=== PATIENT | male | born 1975 | race Caucasian/White ===

== ENCOUNTER 2023-10-25 20:40 | Emergency (ER) | payer OTHER, SELFPAY ==
[2023-10-25 20:41] VITALS: BP 192/108
[2023-10-25 21:00] VITALS: BP 154/91
--- NOTE | 2023-10-25 21:29 | ED.GENMED ---
History of Present Illness
General
Chief Complaint: Chest Pain
Source: patient
Time Seen by Provider: 10/25/23 21:21
Travel History
Have you had any contact with someone who has COVID-19?: No
Do you have any symptoms of coronavirus? Fever > 100 degrees, chills, cough, shortness of breath, sore throat, loss of taste or smell, muscle aches, or headache?: No
History of Present Illness
History of Present Illness:
This patient is a 48-year-old male with complaints of left anterior chest wall pain that started earlier tonight and is now fully resolved. He states that he has been getting the same pain for the last few nights, lasting about a minute or so at a
time and then going away completely before recurring. He describes it as a 'tight' without associated radiation, diaphoresis, nausea, vomiting, dyspnea. It is not pleuritic in nature. He denies associated new leg edema, back pain, jaw pain,
headache, dizziness, fever, chills, sore throat, cough, or other complaints.
Past History
Past History
ED Past Medical History: None
ED Past Surgical History: Other (Oral)
Social History
Tobacco: Former smoker
Alcohol: None
Drug: None
Personal:
Living: with family
Employment: Employed
Phy Exam
Physical Exam
Physical Exam:
GENERAL: Alert , in no apparent distress
EYE: pupils equal and reactive
NECK: Supple, no significant adenopathy.
ENT: o/p clr, mmm.
CARDIAC: Regular rate and rhythm .
LUNGS: Clear breath sounds bilaterally, no acute respiratory distress, no wheezes/rales/rhonchi
ABDOMEN: Soft, without focal tenderness, no r/g, no cvat
NEUROLOGICAL: Alert and oriented, no focal neuro deficits
SKIN: Warm and dry, skin intact.
MUSCULOSKELETAL: No edema, well perfused.
PSYCH: Normal and appropriate interaction.
Scores
Heart Score for Chest Pain Patients
STEMI patient?: Not applicable
Course
Orders/Labs/Results
Orders:
Orders
10/25/23 20:42
Electrocardiogram (*1) Urgent
Reason for Study: Chest Pain
EKG- Treatment ONCE
10/25/23 20:51
Cardiac Monitoring- Treatment ONCE
IV Insert/Care/Rem.- Treatment PRN
O2 Therapy [RESP] Urgent
Titrate/Wean O2 to maintain O2 sat greater than (%): 90
Special Instructions: Maintain sats >/=90%
Pulse Ox/spot Check [RESP] Urgent
Quantity: 1
Special Instructions: ON ROOM AIR
10/25/23 21:29
Complete Blood Count/With Diff Urgent
Comprehensive Metabolic Panel Urgent
Troponin I Urgent
10/25/23 22:33
CR Chest - 2 Views Urgent
Comment:
Reason For Exam: CP
10/26/23 00:37
Troponin I Urgent
Abnormal Lab Results
10/25/23
21:29
Absolute Monos (auto) 0.8 H 10^3/uL
(0.1-0.6)
Glucose 132 H mg/dl
(70-99)
10/25/23 21:29
10/25/23 21:29
Vital Signs
Initial and Last Documented VS:
Initial Vital Signs
Temp Pulse Resp BP Pulse Ox
97.8 F 70 18 192/108 98
10/25/23 20:41 10/25/23 20:41 10/25/23 20:41 10/25/23 20:41 10/25/23 20:41
Last Documented Vital Signs
Temp Pulse Resp BP Pulse Ox
97.8 F 65 24 150/84 96
10/25/23 20:41 10/26/23 00:36 10/26/23 00:36 10/25/23 22:38 10/26/23 00:36
*Critical Care Note
Total Time (30-74mins, 75-104mins- exclusive of procedures): Not Applicable
Update Note
Update Note:
Patient presents to the Emergency Department with
Number and Complexity of Problems Addressed at the Encounter
� Chronic conditions affecting care:
� Acute Exacerbation and/or Progression of Chronic Illness:
� Differential Diagnosis includes:
Amount and/or Complexity of Data to be Reviewed and Analyzed
� I performed an independent evaluation of and my interpretation is:
EKG:read by me, nsr, no acute ischemia, nl rate
CT:
Xrays:cxr read by me, mediastinum nl, no cm, no infiltrate
Laboratory Studies:UNREMARKABLE
Other:
� Review of other/old records reveals:
� Clinical information was obtained by an independent historian:
� Prescriptions/Medications Considered but not given:
� Further testing considered but not performed:
Risk of Complications and/or Morbidity or Mortality of Patient Management
� Social determinants of health affecting care:
� Discussion with other providers (PCP, Hospitalists, Consultants, etc):
� Escalation of care including admission/observation vs risk of discharge considered:1033 PM, pt remains asx, second trop pending. No 'red flag' findings to suggest pe, dissection, evolving acs, etc. Will jasmyneley be candidate
for d/c with close f/u.
ED Attending Note
-
Portions of this chart may have been created with voice recognition software.� Occasional wrong word or��sound alike� substitutions may have occurred due to the inherent limitations of voice recognition software.
Discharge Plan
Departure
Patient Disposition: Home (Routine Discharge)
Patient with high blood pressure during this ER visit?: Yes
Condition: Good
Discharge Problem:
Chest pain
Instructions: Chest Pain PCP Follow Up, BLOOD PRESSURE
Referrals:
Kitty Baumann MD [Active] - Next open appointment
NONE,* [Family Provider] -
Activity Restrictions/Additional Instructions:
IF YOU DEVELOP RECURRENT/PERSISTENT, OR NEW PAIN, FEVER, TROUBLE BREATHING, DIZZINESS, ABDOMINAL PAIN, OR OTHER WORRISOME SIGNS, GO TO THE ER IMMEDIATELY!
Interventions
Interventions:
*Risk Screen - Suicide Last Done: 10/25/23 20:41
*General Assessment Last Done: 10/25/23 21:32
*Neglect/Abuse Screening Last Done: 10/25/23 20:41
ED- Fall Risk Assessment Last Done: 10/25/23 21:32
*ED COVID-19 Vaccine History Last Done: 10/25/23 21:32
*Nursing Disposition Last Done: 10/26/23 01:40
ED- Cardiac Assessment Last Done: 10/25/23 21:32
Discharge Date and Time
Discharge Date/Time: 10/26/23 01:47
Print Language: [place]ET[place]ESE
[2023-10-25 21:37] VITALS: BP 158/105
[2023-10-25 21:57] LABS: % Basophils 1.3 % (0-2); % Eosinophils 1.8 % (0-6); % Immature Granulocytes 0.3 % (0-0.5); % Lymphocytes 28.6 % (20.5-51.1); % Monocytes 8.2 % (1.7-9.3); % Neutrophils 59.8 % (42.2-75.2); Absolute Basophils 0.1 10^3/uL (0-0.2); Absolute Eosinophils 0.2 10^3/uL (0-0.7); Absolute Lymphocytes 2.7 10^3/uL (1.2-3.4); Absolute Monocytes 0.8 10^3/uL (0.1-0.6); Absolute Neutrophils 5.7 10^3/uL (1.4-6.5); Hematocrit 40.4 % (39.0-52.0); Hemoglobin 14.4 g/dL (13.0-18.0); Mean Corp Hgb Conc. 35.6 g/dL (33.0-37.0); Mean Corpuscular Hgb 30.2 pg (27.0-31.0); Mean Corpuscular Volume 84.7 fL (80.0-94.0); Mean Platelet Volume 10.1 fL (7.4-10.4); Nucleated Red Blood Cells % 0 % (-); Platelet Count 242 10^3/uL (130-400); Red Blood Cell Count 4.77 10^6/uL (4.70-6.10); Red Cell Dist. Width 12.5 % (11.5-14.5); White Blood Cell Count 9.5 10^3/uL (4.8-10.8)
[2023-10-25 22:00] VITALS: BP 147/85
[2023-10-25 22:05] VITALS: BMI 36.7
[2023-10-25 22:09] LABS: ALT (SGPT) 22 U/L (0-50); AST (SGOT) 20 U/L (17-59); Albumin 4.1 g/dl (3.5-5.0); Alkaline Phosphatase 63 U/L (38-126); Blood Urea Nitrogen 18 mg/dl (9-20); Calcium 9.8 mg/dl (8.4-10.2); Carbon Dioxide 25 mmol/L (22-30); Chloride 105 mmol/L (98-107); Estimated Creatinine Clearance > 125 ml/min; Glucose 132 mg/dl (70-99); Potassium 3.7 mmol/L (3.5-5.1); Sodium 140 mmol/L (135-145); Total Bilirubin 0.3 mg/dl (0.2-1.3); Total Protein 6.8 g/dl (6.3-8.2); eGFR > 60.00
[2023-10-25 22:20] LABS: Troponin I < 0.012 ng/ml
[2023-10-25 22:38] VITALS: BP 150/84
[2023-10-26 01:08] LABS: Troponin I < 0.012 ng/ml
== END 2023-10-26 01:47 | disposition home or self-care (01) ==
LOC: EMR 20:40
PROVIDERS: EMERGENCY PHYSICIAN Emergency Medicine
DX: R07.89 Other chest pain (principal); R03.0 Elevated blood-pressure reading, without diagnosis of hypertension; Z87.891 Personal history of nicotine dependence; Z91.048 Other nonmedicinal substance allergy status
CPT/HCPCS: 99284; 94760; 71046; 80053; 84484; 85025; 93005

== ENCOUNTER → 2024-01-01 11:47 | Outpatient (REF) | payer OTHER, SELFPAY | LOC: HWRAD 11:47 | PROVIDERS: ATTENDING PHYSICIAN Physician Assistant | DX: Z87.891 Personal history of nicotine dependence (principal) | CPT/HCPCS: 71271 ==